=== PATIENT | male | born 1970 | race Caucasian/White ===

== ENCOUNTER 2017-12-03 10:13 | Inpatient (IN) | payer OTHER ==
[2017-12-03 10:51] VITALS: BMI 31.7
--- NOTE | 2017-12-03 13:09 | HP ---
CIWA Score - CIWA Score Nausea/Vomitin-No Nausea/No Vomiting Muscle Tremors: 4-Moderate,w/Arms Extend Anxiety: 4-Mod. Anxious/Guarded Agitation: 4-Moderately Restless Paroxysmal Sweats: 1-Minimal Palms Moist Orientation: 0-Oriented Tacttile Disturbances: 0-None Auditory Disturbances: 0-None Visual Disturbances: 0-None Headache: 2-Mild CIWA-Ar Total Score: 15 Admission ROS BHS - HPI Chief Complaint: ALCOHOL WITHDRAWAL SX Allergies/Adverse Reactions: Allergies Allergy/AdvReac Type Severity Reaction Status Date / Time No Known Allergies Allergy Verified 12/03/17 11:29 History of Present Illness: 47 Y/O H/MALE WITH A HX OF ALCOHOL ,CRACK AND MARIJUANA DEPENDENCE SEEKING DETOX [place]. Exam Limitations: No Limitations - Ebola screening Have you traveled outside of the country in the last 21 days: No Have you had contact with anyone from an Ebola affected area: No Have you been sick,other than usual withdrawal symptoms: No Do you have a fever: No - Review of Systems Constitutional: Chills, Night Sweats EENT: reports: Blurred Vision (WEARS GLASSES), Nose Congestion Respiratory: reports: Shortness of Breath (HX ASTHMA), Wheezing Cardiac: reports: Chest Pain, Lightheadedness GI: reports: Constipated : reports: Dysuria, Pain (ON URINATION) Musculoskeletal: reports: Back Pain, Joint Pain, Muscle Pain Integumentary: reports: No Symptoms Reported Neuro: reports: Headache, Tremors, Unsteady Gait, Dizziness Endocrine: reports: No Symptoms Reported Hematology: reports: No Symptoms Reported Psychiatric: reports: Orientated x3, Anxious, Depressed Other Systems: Reviewed and Negative Patient History - Patient Medical History Hx Anemia: No Hx Asthma: Yes (MDI) Hx Chronic Obstructive Pulmonary Disease (COPD): No Hx Cardiac Disorders: Yes (2016- HX [place]([facility])) Hx Hypertension: No Hx Hypercholesterolemia: No HX Cerebrovascular Accident: No Hx Seizures: No Hx Diabetes: No Hx Gastrointestinal Disorders: No Hx Genitourinary Disorders: No Hx Sexually Transmitted Disorders: No (DENIES) Hx Renal Disease (ESRD): No Hx Human Immunodeficiency Virus (HIV): No (NEGATIVE HX) Hx Hepatitis C: Yes (NOT TREATED) Hx Depression: Yes (NO CURRENT MEDS) Hx Suicide Attempt: No (DENIES S/I TODAY) Hx Schizophrenia: No - Patient Surgical History Past Surgical History: Yes Hx Neurologic Surgery: No Hx Cataract Extraction: No Hx Cardiac Surgery: No Hx Lung Surgery: No Hx Breast Surgery: No Hx Breast Biopsy: No Hx Abdominal Surgery: Yes (2016 ABDOMINAL HERNIA SURGERY) Hx Appendectomy: No Hx Cholecystectomy: No Hx Genitourinary Surgery: No Hx Section: No Hx Orthopedic Surgery: Yes Other Surgical History: PT HAD A FALL IN 2016 AND HAD SURGERY Anesthesia Reaction: No - PPD History Previous Implant?: Yes Documented Results: Negative w/o proof Implanted On Prior [facility] Admission?: No PPD to be Administered?: Yes - Reproductive History Patient is a Female of Child Bearing Age (11 -55 yrs old): No (MALE) - Smoking Cessation Smoking history: Current every day smoker Aproximately how many cigarettes per day: 5 Hx Chewing Tobacco Use: No Initiated information on smoking cessation: Yes 'Breaking Loose' booklet given: 12/03/17 - Substance & Tx. History Hx Alcohol Use: Yes Hx Substance Use: Yes Substance Use Type: Alcohol, Cocaine, Marijuana Hx Substance Use Treatment: Yes (LAST TX AT [facility]) - Substances Abused Alcohol Route: Oral Frequency: Daily Amount used: 10 bottles daily, (beer) Age of first use: 36 Date of Last Use: 12/03/17 Marijuana/Hashish Route: Smoking Frequency: Daily Amount used: 4-5 blunts daily Age of first use: 16 Date of Last Use: 12/03/17 Crack Route: Smoking Frequency: Daily Amount used: 4-5 blunts ($40) Age of first use: 17 Date of Last Use: 12/03/17 Family Disease History - Family Disease History Family Disease History: Heart Disease: Grandparent (GMOTHER-ALIVE), Mother, Brother, Other: Father (ALCOHOLISM), Sister (ADDICTION) Admission Physical Exam BHS - Vital Signs Vital Signs: Vital Signs - 24 hr 12/03/17 10:48 Temperature 96.3 F L Pulse Rate 81 Respiratory 19 Rate Blood Pressure 127/68 - Physical General Appearance: Yes: Moderate Distress, Irritable, Anxious HEENTM: Yes: EOMI, Normocephalic, BRAULIO, Pharynx Normal Respiratory: Yes: Chest Non-Tender, Lungs Clear, No Respiratory Distress, Wheezing, Inspiration Neck: Yes: Supple, Trachea in good position Breast: Yes: Breast Exam Deferred Cardiology: Yes: Regular Rhythm, Regular Rate, S1, S2 Abdominal: Yes: Normal Bowel Sounds, Non Tender, Protuberent Genitourinary: Yes: Other (N/C) Back: Yes: Within Normal Limits Musculoskeletal: Yes: full range of Motion, Gait Steady Extremities: Yes: Normal Range of Motion, Non-Tender Neurological: Yes: forestry workers II-XII NML intact, Fully Oriented, Alert, Motor Strength 5/5 Integumentary: Yes: Dry, Warm Lymphatic: Yes: Within Normal Limits - Diagnostic (1) Alcohol dependence with uncomplicated withdrawal Current Visit: Yes Status: Acute (2) Cocaine dependence, uncomplicated Current Visit: Yes Status: Acute (3) Cannabis dependence, uncomplicated Current Visit: Yes Status: Acute (4) Asthma Current Visit: Yes Status: Acute Qualifiers: Asthma severity: mild Asthma persistence: intermittent Asthma complication type: uncomplicated Qualified Code(s): J45.20 - Mild intermittent asthma, uncomplicated (5) Hx of chronic hepatitis Current Visit: Yes Status: Chronic Comment: NOT TREATED (6) Hx of myocardial infarction Current Visit: Yes Status: Resolved Comment: IN 2016 Cleared for Admission [facility] - Detox or Rehab [facility] Level of Care: Medically Managed Detox Regimen/Protocol: Librium [facility] Breath Alcohol Content Breath Alcohol Content: 0 Urine Drug Screen - Results Drug Screen Negative: Yes Urine Drug Screen Results: THC-Marijuana, KYM-Cocaine
[2017-12-03] MEDS ORDERED: MAGNESIUM CITRATE 300 ML BOTTLE PO PRN (13:28)
[2017-12-03] MEDS ORDERED: MAGNESIUM HYDROX 2400MG/30ML ORAL SUSPENSION 30 ML CUP PO PRN (13:28)
[2017-12-03] MEDS ORDERED: P-EPHED 60MG/TRIPROLIDI 2.5MG TABLET PO PRN (13:28)
[2017-12-03] MEDS ORDERED: hydrOXYzine PAMOATE 50 MG CAPSULE (FP) PO PRN (13:28)
[2017-12-03] MEDS ORDERED: NICOTINE POLACRILEX 2 MG GUM BUC PRN (13:28)
[2017-12-03] MEDS ORDERED: chlordiazePOXIDE HCL 25 MG CAPSULE PO PRN (13:28)
[2017-12-03] MEDS ORDERED: MAG HYDROX/AL HYDROX/SIMETH 30 ML UNIT-DOSE CUP PO PRN (13:28)
[2017-12-03] MEDS ORDERED: MENTHOL/PHENOL 1 EACH UD MM PRN (13:28)
[2017-12-03] MEDS ORDERED: IBUPROFEN 400 MG TABLET (FP) PO PRN (13:28)
[2017-12-03] MEDS ORDERED: LOPERAMIDE HCL 2 MG CAPSULE PO PRN (13:28)
[2017-12-03] MEDS ORDERED: ACETAMINOPHEN 325 MG TABLET (FP) PO PRN (13:28)
[2017-12-03] MEDS ORDERED: chlordiazePOXIDE HCL 25 MG CAPSULE PO ONE (14:00)
[2017-12-03] MEDS: NICOTINE 14 MG/24 HOURS TOPICAL PATCH TD SCH (14:58)
--- NOTE | 2017-12-03 16:25 | EKG ---
Test Reason : Blood Pressure : / mmHG Vent. Rate : 076 BPM Atrial Rate : 076 BPM P-R Int : 150 ms QRS Dur : 082 ms QT Int : 364 ms P-R-T Axes : 054 -19 010 degrees QTc Int : 409 ms NORMAL SINUS RHYTHM NORMAL ECG NO PREVIOUS ECGS AVAILABLE Confirmed by MD LATRELL, ESPINOZA ([id number]) on 12/03/2017 4:24:40 PM Referred By: Confirmed By:ESPINOZA SAMS MD
[2017-12-03] MEDS ORDERED: ALBUTEROL SO4 18 GM HFA INHALER IH PRN (16:31)
[2017-12-03] MEDS: chlordiazePOXIDE HCL 25 MG CAPSULE PO SCH ×2 (18:36→23:14)
[2017-12-03] MEDS: ASPIRIN COATED 81 MG TABLET.EC PO SCH (18:36)
[2017-12-03 18:37] LABS: HEMOGLOBIN 14.2 GM/dL (11.7-16.9); MCH 32.4 pg (25.7-33.7); MCHC 33.7 g/dl (32.0-35.9); MEAN PLT VOLUME 9.7 fl (7.5-11.1); PLATELET COUNT 214 K/MM3 (134-434); RBC 4.37 M/mm3 (4.00-5.60); RDW 14.1 % (11.9-15.9)
[2017-12-03 18:43] LABS: SICKLE CELL SCREEN NEGATIVE (NEGATIVE)
[2017-12-03 18:51] LABS: CHLORIDE 107 mmol/L (98-107); POTASSIUM 4.1 mmol/L (3.5-5.1); SODIUM 138 mmol/L (136-145)
[2017-12-03 18:56] LABS: URINE APPEARANCE TURBID; URINE BILIRUBIN NEGATIVE (<2.0 mg/dL); URINE BLOOD 1+ (NEGATIVE); URINE COLOR DKYELLOW; URINE GLUCOSE (UA) NEGATIVE (NEGATIVE); URINE KETONE NEGATIVE (NEGATIVE); URINE LEUK ESTERASE NEGATIVE (NEGATIVE); URINE NITRITE NEGATIVE (NEGATIVE); URINE PROTEIN NEGATIVE (NEGATIVE); URINE UROBILINOGEN NEGATIVE mg/dL (0.2-1.0)
[2017-12-03 18:58] LABS: ALBUMIN 3.9 g/dl (3.4-5.0); ALK PHOS 91 U/L (45-117); ANION GAP 3 (8-16); BILIRUBIN,TOTAL 0.4 mg/dL (0.2-1.0); BLOOD UREA NITROGEN 11 mg/dL (7-18); CALCIUM 8.5 mg/dL (8.5-10.1); CO2 28 mmol/L (21-32); CREATININE 0.9 mg/dL (0.7-1.3); GLUCOSE,RANDOM 91 mg/dL (74-106); SGOT/AST 30 U/L (15-37); SGPT/ALT 50 U/L (12-78); TOT PROT 7.2 g/dl (6.4-8.2)
[2017-12-03 19:04] LABS: URINE MUCUS RARE
[2017-12-03] MEDS ORDERED: MELATONIN 5 MG TABLETS PO PRN (22:00)
[2017-12-03] MEDS: DOCUSATE SODIUM 100 MG CAPSULE (FP) PO SCH (23:13)
[2017-12-03] MEDS: ALBUTEROL SO4 2.5/IPRATROPIUM 0.5 INH SOL 3 ML VIAL.NEB. NEB SCH (23:13)
[2017-12-03] MEDS: BUDESONIDE/FORMETEROL FUMARATE 80/4.5 mcg INHALER IH SCH (23:14)
[2017-12-03] MEDS: THIAMINE HCL 100 MG TABLET (FP) PO SCH (23:14)
[2017-12-03] MEDS: ATORVASTATIN CA 40 MG TABLET (FP) PO SCH (23:20)
[2017-12-04] MEDS: chlordiazePOXIDE HCL 25 MG CAPSULE PO SCH ×4 (06:13→22:39)
[2017-12-04] MEDS: BUDESONIDE/FORMETEROL FUMARATE 80/4.5 mcg INHALER IH SCH ×2 (10:10→22:41)
[2017-12-04] MEDS: ALBUTEROL SO4 2.5/IPRATROPIUM 0.5 INH SOL 3 ML VIAL.NEB. NEB SCH ×4 (10:11→20:35)
[2017-12-04] MEDS: NICOTINE 14 MG/24 HOURS TOPICAL PATCH TD SCH (10:11)
[2017-12-04] MEDS: ASPIRIN COATED 81 MG TABLET.EC PO SCH (10:12)
[2017-12-04] MEDS: DOCUSATE SODIUM 100 MG CAPSULE (FP) PO SCH ×2 (10:12→22:39)
[2017-12-04] MEDS: PRENATAL VITAMINS W/ FOLIC ACID TABLET (FP) PO SCH (10:12)
--- NOTE | 2017-12-04 12:58 | PN ---
[facility] CIWA - CIWA Score Nausea/Vomitin-No Nausea/No Vomiting Muscle Tremors: 4-Moderate,w/Arms Extend Anxiety: 4-Mod. Anxious/Guarded Agitation: 4-Moderately Restless Paroxysmal Sweats: 1-Minimal Palms Moist Orientation: 0-Oriented Tacttile Disturbances: 0-None Auditory Disturbances: 0-None Visual Disturbances: 0-None Headache: 0-None Present CIWA-Ar Total Score: 13 S Progress Note (SOAP) Subjective: ANXIETY,SWEATS,TREMORS, INTERMITTENT SLEEP. Objective: 12/04/17 12:58 Vital Signs Temperature 96 F L 12/04/17 09:48 Pulse Rate 80 12/04/17 09:48 Respiratory Rate 18 12/04/17 09:48 Blood Pressure 124/71 12/04/17 09:48 O2 Sat by Pulse Oximetry (%) Laboratory Last Values WBC 6.0 K/mm3 (4.0-10.0) 12/03/17 13:00 RBC 4.37 M/mm3 (4.00-5.60) 12/03/17 13:00 Hgb 14.2 GM/dL (11.7-16.9) 12/03/17 13:00 Hct 42.0 % (35.4-49) 12/03/17 13:00 MCV 96.0 fl (80-96) 12/03/17 13:00 MCH 32.4 pg (25.7-33.7) 12/03/17 13:00 MCHC 33.7 g/dl (32.0-35.9) 12/03/17 13:00 RDW 14.1 % (11.9-15.9) 12/03/17 13:00 Plt Count 214 K/MM3 (134-434) 12/03/17 13:00 MPV 9.7 fl (7.5-11.1) 12/03/17 13:00 Sickle Cell Screen Negative (NEGATIVE) 12/03/17 13:00 Sodium 138 mmol/L (136-145) 12/03/17 13:00 Potassium 4.1 mmol/L (3.5-5.1) 12/03/17 13:00 Chloride 107 mmol/L (98-107) 12/03/17 13:00 Carbon Dioxide 28 mmol/L (21-32) 12/03/17 13:00 Anion Gap 3 (8-16) L 12/03/17 13:00 BUN 11 mg/dL (7-18) 12/03/17 13:00 Creatinine 0.9 mg/dL (0.7-1.3) 12/03/17 13:00 Creat Clearance w eGFR > 60 (>60) 12/03/17 13:00 Random Glucose 91 mg/dL (74-106) 12/03/17 13:00 Calcium 8.5 mg/dL (8.5-10.1) 12/03/17 13:00 Total Bilirubin 0.4 mg/dL (0.2-1.0) 12/03/17 13:00 AST 30 U/L (15-37) 12/03/17 13:00 ALT 50 U/L (12-78) 12/03/17 13:00 Alkaline Phosphatase 91 U/L (45-117) 12/03/17 13:00 Total Protein 7.2 g/dl (6.4-8.2) 12/03/17 13:00 Albumin 3.9 g/dl (3.4-5.0) 12/03/17 13:00 Urine Color Dkyellow 12/03/17 18:00 Urine Appearance Turbid 12/03/17 18:00 Urine pH 5.0 (5.0-8.0) 12/03/17 18:00 Ur Specific [place] 1.015 (1.001-1.035) 12/03/17 18:00 Urine Protein Negative (NEGATIVE) 12/03/17 18:00 Urine Glucose (UA) Negative (NEGATIVE) 12/03/17 18:00 Urine Ketones Negative (NEGATIVE) 12/03/17 18:00 Urine Blood 1+ (NEGATIVE) H 12/03/17 18:00 Urine Nitrite Negative (NEGATIVE) 12/03/17 18:00 Urine Bilirubin Negative (<2.0 mg/dL) 12/03/17 18:00 Urine Urobilinogen Negative mg/dL (0.2-1.0) 12/03/17 18:00 Ur Leukocyte Esterase Negative (NEGATIVE) 12/03/17 18:00 Urine WBC (Auto) 2 /hpf (3-5) 12/03/17 18:00 Urine RBC (Auto) 1 /hpf (0-3) 12/03/17 18:00 Urine Mucus Rare 12/03/17 18:00 RPR Titer Nonreactive (NONREACTIVE) 12/03/17 13:00 HIV 1&2 Antibody Screen Negative 12/03/17 12:25 HIV P24 Antigen Negative 12/03/17 12:25 Assessment: 12/04/17 12:58 WITHDRAWAL SX Plan: CONTINUE DETOX
--- NOTE | 2017-12-04 16:28 | CONSULT ---
[facility] Psychiatric Consult - Data Date of interview: 12/04/17 Admission source: [facility] Identifying data: First admission to [facility] for this 47 y/o [place]born male seeking detox treatment on for marihuana,cocaine (crack) and alcohol dependence.Patient is ,a father of two,domiciled,unemployed and supported by relatives. Substance Abuse History: Discussed with patient.Confirmed log standing history of substance abuse.Details in current [facility] report as follows : Smoking history: Current every day smoker. Aproximately how many cigarettes per day: 5. Hx Chewing Tobacco Use: No. Initiated information on smoking cessation: Yes. ' Breaking Loose' booklet given: 12/03/17. - Substance & Tx. History. Hx Alcohol Use: Yes. Hx Substance Use: Yes. Substance Use Type: Alcohol, Cocaine , Marijuana. Hx Substance Use Treatment: Yes (LAST TX AT [facility]). - Substances Abused. Alcohol. Route: Oral. Frequency: Daily. Amount used: 10 bottles daily, (beer). Age of first use: 36. Date of Last Use: 12/03/17. * * Marijuana/Hashish. Route: Smoking. Frequency: Daily. Amount used: 4-5 blunts daily. Age of first use: 16. Date of Last Use: 12/03/17. Crack. Route: Smoking. Frequency: Daily. Amount used: 4-5 blunts ($40). Age of first use: 17. Date of Last Use: 12/03/17 Medical History: Bronchial asthma,antecedent of myocardial infarction,hepatitis C,dyslipidemia,chronic pain syndrome and a history of abdominal herniorraphy. Psychiatric History: No reported history of mental illness.Patient states that he has been prescribed trazodone + benadryl for insomnia (primary care providers ).No history of psychiatric hospitalizations,psychiatric OPD care or suicide attempts. Physical/Sexual Abuse/Trauma History: Patient denies. Additional Comment: Urine Drug Screen Results: THC-Marijuana, KYM-Cocaine.Noted. Mental Status Exam - Mental Status Exam Alert and Oriented to: Time, Place, Person Cognitive Function: Good Patient Appearance: Well Groomed (obese) Mood: Nervous, Withdrawn Affect: Mood Congruent Patient Behavior: Fatigued, Appropriate, Cooperative Speech Pattern: Clear Voice Loudness: Normal Thought Process: Goal Oriented Thought Disorder: Not Present Hallucinations: Denies Suicidal Ideation: Denies Homicidal Ideation: Denies Insight/Judgement: Poor Sleep: Poorly, Difficulty falling asleep Appetite: Good Muscle strength/Tone: Normal Gait/Station: Normal Psychiatric Findings - Problem List ([place] 1, 2,3) (1) Alcohol dependence with uncomplicated withdrawal Current Visit: Yes Status: Acute (2) Cannabis dependence, uncomplicated Current Visit: Yes Status: Acute (3) Cocaine dependence, uncomplicated Current Visit: Yes Status: Acute (4) Nicotine dependence Current Visit: Yes Status: Acute (5) Insomnia Current Visit: Yes Status: Acute - Initial Treatment Plan Initial Treatment Plan: Psychoeducation.Sleep hygiene.Detoxification in progress.Trazodone 50 mg po hs.Patient is made aware of the risk of parasomnias (sleep-walking).He agrees with this careplan.Observation.
[2017-12-04] MEDS: traZODone HCL 50 MG TABLET (FP) PO SCH (22:39)
[2017-12-04] MEDS: THIAMINE HCL 100 MG TABLET (FP) PO SCH (22:39)
[2017-12-04] MEDS: ATORVASTATIN CA 40 MG TABLET (FP) PO SCH (22:39)
[2017-12-05] MEDS: chlordiazePOXIDE HCL 25 MG CAPSULE PO SCH ×2 (05:11→10:10)
[2017-12-05] MEDS: ASPIRIN COATED 81 MG TABLET.EC PO SCH (10:10)
[2017-12-05] MEDS: PRENATAL VITAMINS W/ FOLIC ACID TABLET (FP) PO SCH (10:10)
[2017-12-05] MEDS: BUDESONIDE/FORMETEROL FUMARATE 80/4.5 mcg INHALER IH SCH ×2 (10:10→22:35)
[2017-12-05] MEDS: DOCUSATE SODIUM 100 MG CAPSULE (FP) PO SCH ×2 (10:10→22:33)
[2017-12-05] MEDS: ALBUTEROL SO4 2.5/IPRATROPIUM 0.5 INH SOL 3 ML VIAL.NEB. NEB SCH ×4 (10:11→22:32)
[2017-12-05] MEDS: NICOTINE 14 MG/24 HOURS TOPICAL PATCH TD SCH (10:11)
[2017-12-05] MEDS: guaiFENesin/D-METHORPHAN HB 10 ML UNIT-DOSE CUPS PO PRN ×2 (10:12→17:29)
--- NOTE | 2017-12-05 13:32 | PN ---
[facility] CIWA - CIWA Score Nausea/Vomitin-No Nausea/No Vomiting Muscle Tremors: 4-Moderate,w/Arms Extend Anxiety: 4-Mod. Anxious/Guarded Agitation: 4-Moderately Restless Paroxysmal Sweats: 1-Minimal Palms Moist Orientation: 0-Oriented Tacttile Disturbances: 0-None Auditory Disturbances: 0-None Visual Disturbances: 0-None Headache: 0-None Present CIWA-Ar Total Score: 13 BHS Progress Note (SOAP) Subjective: TREMORS,SWEATS,MUSCLE ACHES. Objective: 12/05/17 13:33 Vital Signs Temperature 97.8 F 12/05/17 09:02 Pulse Rate 88 12/05/17 09:02 Respiratory Rate 18 12/05/17 09:02 Blood Pressure 118/81 12/05/17 09:02 O2 Sat by Pulse Oximetry (%) Laboratory Last Values WBC 6.0 K/mm3 (4.0-10.0) 12/03/17 13:00 RBC 4.37 M/mm3 (4.00-5.60) 12/03/17 13:00 Hgb 14.2 GM/dL (11.7-16.9) 12/03/17 13:00 Hct 42.0 % (35.4-49) 12/03/17 13:00 MCV 96.0 fl (80-96) 12/03/17 13:00 MCH 32.4 pg (25.7-33.7) 12/03/17 13:00 MCHC 33.7 g/dl (32.0-35.9) 12/03/17 13:00 RDW 14.1 % (11.9-15.9) 12/03/17 13:00 Plt Count 214 K/MM3 (134-434) 12/03/17 13:00 MPV 9.7 fl (7.5-11.1) 12/03/17 13:00 Sickle Cell Screen Negative (NEGATIVE) 12/03/17 13:00 Sodium 138 mmol/L (136-145) 12/03/17 13:00 Potassium 4.1 mmol/L (3.5-5.1) 12/03/17 13:00 Chloride 107 mmol/L (98-107) 12/03/17 13:00 Carbon Dioxide 28 mmol/L (21-32) 12/03/17 13:00 Anion Gap 3 (8-16) L 12/03/17 13:00 BUN 11 mg/dL (7-18) 12/03/17 13:00 Creatinine 0.9 mg/dL (0.7-1.3) 12/03/17 13:00 Creat Clearance w eGFR > 60 (>60) 12/03/17 13:00 Random Glucose 91 mg/dL (74-106) 12/03/17 13:00 Calcium 8.5 mg/dL (8.5-10.1) 12/03/17 13:00 Total Bilirubin 0.4 mg/dL (0.2-1.0) 12/03/17 13:00 AST 30 U/L (15-37) 12/03/17 13:00 ALT 50 U/L (12-78) 12/03/17 13:00 Alkaline Phosphatase 91 U/L (45-117) 12/03/17 13:00 Total Protein 7.2 g/dl (6.4-8.2) 12/03/17 13:00 Albumin 3.9 g/dl (3.4-5.0) 12/03/17 13:00 Urine Color Dkyellow 12/03/17 18:00 Urine Appearance Turbid 12/03/17 18:00 Urine pH 5.0 (5.0-8.0) 12/03/17 18:00 Ur Specific [place] 1.015 (1.001-1.035) 12/03/17 18:00 Urine Protein Negative (NEGATIVE) 12/03/17 18:00 Urine Glucose (UA) Negative (NEGATIVE) 12/03/17 18:00 Urine Ketones Negative (NEGATIVE) 12/03/17 18:00 Urine Blood 1+ (NEGATIVE) H 12/03/17 18:00 Urine Nitrite Negative (NEGATIVE) 12/03/17 18:00 Urine Bilirubin Negative (<2.0 mg/dL) 12/03/17 18:00 Urine Urobilinogen Negative mg/dL (0.2-1.0) 12/03/17 18:00 Ur Leukocyte Esterase Negative (NEGATIVE) 12/03/17 18:00 Urine WBC (Auto) 2 /hpf (3-5) 12/03/17 18:00 Urine RBC (Auto) 1 /hpf (0-3) 12/03/17 18:00 Urine Mucus Rare 12/03/17 18:00 RPR Titer Nonreactive (NONREACTIVE) 12/03/17 13:00 HIV 1&2 Antibody Screen Negative 12/03/17 12:25 HIV P24 Antigen Negative 12/03/17 12:25 Assessment: 12/05/17 13:33 WITHDRAWAL SX Plan: CONTINUE DETOX
--- NOTE | 2017-12-05 16:24 | DS ---
[facility] Detox Discharge Summary Admission Date: 12/03/17 Discharge Date: 12/05/17 - History Present History: Alcohol Dependence, Cannabis Dependence, Cocaine Dependence Additional Comments: dara refused to stay to complete detox, offered accelrated detox schedule to be discharged to [facility] but wanted to sign out AMA. medically stable, risks of not completing detox and overdose discussed with patienty by nurse Pertinent Past History: anxiety, depression and insomnia, nicotien dependence - Physical Exam Results Vital Signs: Vital Signs Temperature 97.8 F 12/05/17 09:02 Pulse Rate 88 12/05/17 09:02 Respiratory Rate 18 12/05/17 09:02 Blood Pressure 118/81 12/05/17 09:02 O2 Sat by Pulse Oximetry (%) Laboratory Tests 12/03/17 12/03/17 12/03/17 12:25 13:00 13:00 WBC 6.0 RBC 4.37 Hgb 14.2 Hct 42.0 MCV 96.0 MCH 32.4 MCHC 33.7 RDW 14.1 Plt Count 214 MPV 9.7 Sickle Cell Screen Negative Sodium 138 Potassium 4.1 Chloride 107 Carbon Dioxide 28 Anion Gap 3 L BUN 11 Creatinine 0.9 Creat Clearance w eGFR > 60 Random Glucose 91 Calcium 8.5 Total Bilirubin 0.4 AST 30 ALT 50 Alkaline Phosphatase 91 Total Protein 7.2 Albumin 3.9 Urine Color Urine Appearance Urine pH Ur Specific [place] Urine Protein Urine Glucose (UA) Urine Ketones Urine Blood Urine Nitrite Urine Bilirubin Urine Urobilinogen Ur Leukocyte Esterase Urine WBC (Auto) Urine RBC (Auto) Urine Mucus RPR Titer HIV 1&2 Antibody Screen Negative HIV P24 Antigen Negative 12/03/17 12/03/17 13:00 18:00 WBC RBC Hgb Hct MCV MCH MCHC RDW Plt Count MPV Sickle Cell Screen Sodium Potassium Chloride Carbon Dioxide Anion Gap BUN Creatinine Creat Clearance w eGFR Random Glucose Calcium Total Bilirubin AST ALT Alkaline Phosphatase Total Protein Albumin Urine Color Dkyellow Urine Appearance Turbid Urine pH 5.0 Ur Specific [place] 1.015 Urine Protein Negative Urine Glucose (UA) Negative Urine Ketones Negative Urine Blood 1+ H Urine Nitrite Negative Urine Bilirubin Negative Urine Urobilinogen Negative Ur Leukocyte Esterase Negative Urine WBC (Auto) 2 Urine RBC (Auto) 1 Urine Mucus Rare RPR Titer Nonreactive HIV 1&2 Antibody Screen HIV P24 Antigen Pertinent Admission Physical Exam Findings: withdrawal sx, dehydration - Treatment Hospital Course: Detox Protocol Followed Patient has Accepted a Rehab Referral to: no - Medication Discharge Medications: Ambulatory Orders Aspirin [Aspirin EC] 81 mg PO DAILY 12/03/17 Atorvastatin Calcium 40 mg PO DAILY 12/03/17 Docusate Sodium [Colace -] 100 mg PO BID 12/03/17 traZODone HCL [Desyrel -] 50 mg PO HS 12/03/17 Albuterol Sulfate Inhaler - [Ventolin HFA Inhaler -] 2 puff IH Q4H PRN #1 inhaler 12/05/17 - Diagnosis (1) Alcohol dependence with uncomplicated withdrawal Current Visit: Yes Status: Acute (2) Asthma Current Visit: Yes Status: Acute Qualifiers: Asthma severity: mild Asthma persistence: intermittent Asthma complication type: uncomplicated Qualified Code(s): J45.20 - Mild intermittent asthma, uncomplicated (3) Cannabis dependence, uncomplicated Current Visit: Yes Status: Acute (4) Cocaine dependence, uncomplicated Current Visit: Yes Status: Acute (5) Insomnia Current Visit: Yes Status: Acute (6) Nicotine dependence Current Visit: Yes Status: Acute (7) Hx of chronic hepatitis Current Visit: Yes Status: Chronic (8) Hx of myocardial infarction Current Visit: Yes Status: Resolved - AMA Did Patient Leave Against Medical Advice: Yes
[2017-12-05] MEDS: chlordiazePOXIDE 5 MG CAPSULE PO SCH ×2 (17:08→22:33)
[2017-12-05] MEDS: ATORVASTATIN CA 40 MG TABLET (FP) PO SCH (22:33)
[2017-12-05] MEDS: traZODone HCL 50 MG TABLET (FP) PO SCH (22:33)
[2017-12-05] MEDS: THIAMINE HCL 100 MG TABLET (FP) PO SCH (22:33)
[2017-12-06] MEDS: chlordiazePOXIDE 5 MG CAPSULE PO SCH (05:49)
[2017-12-06 09:08] VITALS: BP 123/83; PULSE 109; TEMP 96.8
--- NOTE | 2017-12-06 14:10 | PN ---
BHS Progress Note (SOAP) Subjective: Patient Denies Current Detox symptoms and reports that he feels well overall. Objective: PATIENT A & O X 3, OBSERVED AMBULATING NO UNIT. NO ACUTE DISTRESS. 12/06/17 14:09 Vital Signs Temperature 96.8 F L 12/06/17 09:07 Pulse Rate 109 H 12/06/17 09:07 Respiratory Rate 18 12/06/17 09:07 Blood Pressure 123/83 12/06/17 09:07 O2 Sat by Pulse Oximetry (%) Laboratory Tests 12/03/17 12/03/17 12/03/17 12:25 13:00 13:00 WBC 6.0 RBC 4.37 Hgb 14.2 Hct 42.0 MCV 96.0 MCH 32.4 MCHC 33.7 RDW 14.1 Plt Count 214 MPV 9.7 Sickle Cell Screen Negative Sodium 138 Potassium 4.1 Chloride 107 Carbon Dioxide 28 Anion Gap 3 L BUN 11 Creatinine 0.9 Creat Clearance w eGFR > 60 Random Glucose 91 Calcium 8.5 Total Bilirubin 0.4 AST 30 ALT 50 Alkaline Phosphatase 91 Total Protein 7.2 Albumin 3.9 Urine Color Urine Appearance Urine pH Ur Specific [place] Urine Protein Urine Glucose (UA) Urine Ketones Urine Blood Urine Nitrite Urine Bilirubin Urine Urobilinogen Ur Leukocyte Esterase Urine WBC (Auto) Urine RBC (Auto) Urine Mucus RPR Titer HIV 1&2 Antibody Screen Negative HIV P24 Antigen Negative 12/03/17 12/03/17 13:00 18:00 WBC RBC Hgb Hct MCV MCH MCHC RDW Plt Count MPV Sickle Cell Screen Sodium Potassium Chloride Carbon Dioxide Anion Gap BUN Creatinine Creat Clearance w eGFR Random Glucose Calcium Total Bilirubin AST ALT Alkaline Phosphatase Total Protein Albumin Urine Color Dkyellow Urine Appearance Turbid Urine pH 5.0 Ur Specific [place] 1.015 Urine Protein Negative Urine Glucose (UA) Negative Urine Ketones Negative Urine Blood 1+ H Urine Nitrite Negative Urine Bilirubin Negative Urine Urobilinogen Negative Ur Leukocyte Esterase Negative Urine WBC (Auto) 2 Urine RBC (Auto) 1 Urine Mucus Rare RPR Titer Nonreactive HIV 1&2 Antibody Screen HIV P24 Antigen LABS NOTED. Assessment: 12/06/17 14:09 COMPLETION OF DETOX REGIMEN. Plan: PATIENT SCHEDULED FOR DISCHARGE FROM DETOX TODAY.
--- NOTE | 2017-12-06 14:17 | DS ---
[facility] Detox Discharge Summary Admission Date: 12/03/17 Discharge Date: 12/06/17 - History Present History: Alcohol Dependence, Cannabis Dependence, Cocaine Dependence Additional Comments: PATIENT ELECTING TO GO HOME AT THIS TIME. PATIENT NOTES THAT HE WILL PURSUE LOCAL 12-STEP / NA/ AA OUTPATIENT SUPPORT GROUP FOR AFTERCARE. PATIENT WAS DISCHARGED FROM DETOX UNIT IN STABLE MEDICAL CONDITION. Pertinent Past History: Insomnia, Hepatitis C, Depression, History of VT. - Physical Exam Results Vital Signs: Vital Signs Temperature 96.8 F L 12/06/17 09:07 Pulse Rate 109 H 12/06/17 09:07 Respiratory Rate 12/06/17 09:07 Blood Pressure 123/83 12/06/17 09:07 O2 Sat by Pulse Oximetry (%) Pertinent Admission Physical Exam Findings: WITHDRAWAL SYMPTOMS. Laboratory Tests 12/03/17 12/03/17 12/03/17 12:25 13:00 13:00 WBC 6.0 RBC 4.37 Hgb 14.2 Hct 42.0 MCV 96.0 MCH 32.4 MCHC 33.7 RDW 14.1 Plt Count 214 MPV 9.7 Sickle Cell Screen Negative Sodium 138 Potassium 4.1 Chloride 107 Carbon Dioxide 28 Anion Gap 3 L BUN 11 Creatinine 0.9 Creat Clearance w eGFR > 60 Random Glucose 91 Calcium 8.5 Total Bilirubin 0.4 AST 30 ALT 50 Alkaline Phosphatase 91 Total Protein 7.2 Albumin 3.9 Urine Color Urine Appearance Urine pH Ur Specific [place] Urine Protein Urine Glucose (UA) Urine Ketones Urine Blood Urine Nitrite Urine Bilirubin Urine Urobilinogen Ur Leukocyte Esterase Urine WBC (Auto) Urine RBC (Auto) Urine Mucus RPR Titer HIV 1&2 Antibody Screen Negative HIV P24 Antigen Negative 12/03/17 12/03/17 13:00 18:00 WBC RBC Hgb Hct MCV MCH MCHC RDW Plt Count MPV Sickle Cell Screen Sodium Potassium Chloride Carbon Dioxide Anion Gap BUN Creatinine Creat Clearance w eGFR Random Glucose Calcium Total Bilirubin AST ALT Alkaline Phosphatase Total Protein Albumin Urine Color Dkyellow Urine Appearance Turbid Urine pH 5.0 Ur Specific [place] 1.015 Urine Protein Negative Urine Glucose (UA) Negative Urine Ketones Negative Urine Blood 1+ H Urine Nitrite Negative Urine Bilirubin Negative Urine Urobilinogen Negative Ur Leukocyte Esterase Negative Urine WBC (Auto) 2 Urine RBC (Auto) 1 Urine Mucus Rare RPR Titer Nonreactive HIV 1&2 Antibody Screen HIV P24 Antigen LABS NOTED. - Treatment Hospital Course: Detox Protocol Followed, Detoxed Safely, Responded well, Discharged Condition Good Patient has Accepted a Rehab Referral to: PT GOING HOME, ADVISE TO LOCAL 12-STEP /NA/AA OP SUPPORT GROUP PROGRAM. - Medication Discharge Medications: Ambulatory Orders Aspirin [Aspirin EC] 81 mg PO DAILY 12/03/17 Atorvastatin Calcium 40 mg PO DAILY 12/03/17 Docusate Sodium [Colace -] 100 mg PO BID 12/03/17 traZODone HCL [Desyrel -] 50 mg PO HS 12/03/17 Albuterol Sulfate Inhaler - [Ventolin HFA Inhaler -] 2 puff IH Q4H PRN #1 inhaler 12/05/17 - Diagnosis (1) Alcohol dependence with uncomplicated withdrawal Status: Acute (2) Asthma Status: Acute Qualifiers: Asthma severity: mild Asthma persistence: intermittent Asthma complication type: uncomplicated Qualified Code(s): J45.20 - Mild intermittent asthma, uncomplicated (3) Cannabis dependence, uncomplicated Status: Acute (4) Cocaine dependence, uncomplicated Status: Acute (5) Insomnia Status: Acute Qualifiers: Insomnia type: unspecified Qualified Code(s): G47.00 - Insomnia, unspecified (6) Nicotine dependence Status: Acute Qualifiers: Nicotine product type: cigarettes Substance use status: uncomplicated Qualified Code(s): F17.210 - Nicotine dependence, cigarettes, uncomplicated (7) Hx of chronic hepatitis Status: Chronic (8) Hx of myocardial infarction Status: Resolved - AMA Did Patient Leave Against Medical Advice: No
[2017-12-06] MEDS ORDERED: chlordiazePOXIDE HCL 10 MG CAPSULE PO SCH (17:00)
== END 2017-12-06 09:10 | disposition home or self-care (01) | DRG 774 ==
LOC: YASAS 10:13 → Y3N 13:43
PROVIDERS: ADMIT Internal Medicine; ATTEND Internal Medicine
PROC: HZ2ZZZZ Detoxification Services for Substance Abuse Treatment (ICD-10-PCS; principal; 2017-12-03)
DX: F10.230 Alcohol dependence with withdrawal, uncomplicated (principal); F14.20 Cocaine dependence, uncomplicated; F12.20 Cannabis dependence, uncomplicated; F32.9 Major depressive disorder, single episode, unspecified; G47.00 Insomnia, unspecified; I25.2 Old myocardial infarction; J45.20 Mild intermittent asthma, uncomplicated; B18.2 Chronic viral hepatitis C; F17.210 Nicotine dependence, cigarettes, uncomplicated
CPT/HCPCS: 36415; 80053; 81003; 81015; 85027; 85660; 86593; 87389; 93005; 93010; 94640